=== PATIENT | female | born 1995 | race Caucasian/White ===

== ENCOUNTER 2021-11-26 07:35 | Inpatient (IN) ==
[2021-11-26] MEDS ORDERED: DEXTROSE 50% 50 ML SYRINGE IV PRN (08:49)
[2021-11-26] MEDS ORDERED: DEXTROSE 5% 1,000 ML IV PRN (08:49)
[2021-11-26] MEDS ORDERED: SODIUM CHLORIDE 0.9% 1000ML 1,000 ML IV PRN (08:49)
[2021-11-26] MEDS ORDERED: INSULIN REGULAR 250 UNITS in SODIUM CHLORIDE 0.9% 247.5 ML IV PRN (08:49)
[2021-11-26] MEDS ORDERED: OXYTOCIN 30 UNITS/500 ML BAG IV PRN ×2 (08:49)
--- NOTE | 2021-11-26 08:55 | History & Physical Report ---
Date of Service November 26, 2021 Assessment & Plan (1) Encounter for supervision of normal intrauterine in primigravida, antepartum: Plan: Admit to L&D. EFM/toco. Labs. IV. Pitocin. OK for epidural when she desires. OK to eat while admission process is happening, then NPO. History of Present Illness Chief Complaint: rupture of membranes Primary Care Provider: NO PCP 26yo @ 36 4/, presented to L&D with large gush of clear fluid this morning at 6:30a. No vaginal bleeding. + movement. Not feeling ctx. uncomplicated. Allergies Allergy/AdvReac Type Severity Reaction Status Date / Time No Known Allergies Allergy Verified 11/22/21 09:28 Home Medications Medication Instructions Recorded Confirmed Type prenat.vits,yue,bcz-rksb-dkclt 1 tab PO DAILY 05/19/21 11/22/21 History sertraline 100 mg tablet (Zoloft) 100 mg PO DAILY 05/19/21 11/22/21 History vitamin B complex [B PO 05/19/21 11/22/21 History Complex-Vitamin B12] breast pump #1 ea 11/22/21 11/22/21 Rx Patient History Medical History (Updated 10/13/21 @ 16:13 by Jenna Grey MD, FACOG) Varicella vaccine Surgical History (Updated 05/19/21 @ 10:16 by Aure JEFFRIES RN) History of cholecystectomy Family History (Updated 05/19/21 @ 09:59 by Aure JEFFRIES, ROSA) Father Hypertension Denies family history of Ovarian cancer Diabetes Breast cancer Lung cancer Colorectal cancer Social History (Updated 05/19/21 @ 10:01 by Aure JEFFRIES RN) Smoking Status: Never smoker marital status: Single marital status details: Norm Redmond (33) [phone] Current Living Situation: Significant Other Current Living Situation Comment: Sig. Other and 1 dog current occupational status: employed current occupation: [employer] Review of Systems All systems reviewed & are unremarkable except as noted in HPI & below Physical Exam Physical Exam: FHT Cat 1 Singer rare SVE 1/50/-3, soft, mid EFW 6-7 Limited bedside US: Cephalic, anterior placenta, not much measurable fluid. + cardiac activity. + movement Sterile spec exam: neg ferning, neg nitrizine, +pooling, +valsalva. +Amnisure. Constitutional: WD/WN, vitals as above Respiratory: normal respiratory effort, lungs clear to auscultation no respiratory distress Cardiovascular: Rate/Rhythm: regular rate and regular rhythm Gastrointestinal (Abdomen): Inspection/Auscultation: abdomen normal to inspection Percussion/Palpation: abdomen soft; abdomen nontender Gravid. No s/s chorio or abruption. Skin: no rashes, warm and dry Psychiatric: A+Ox3, euthymic affect Results & Data ([facility]) Vital Signs (Past 12 Hours) Vital Signs Temp Resp 11/26/21 07:41 36.8 C 20 Coding Level of Care Code None Diagnoses Encounter for supervision of normal intrauterine in primigravida, antepartum Z34.00
[2021-11-26] MEDS ORDERED: BETAMETH SOD PHOS/ACETATE IA 6 MG/ML IM STA (08:56)
[2021-11-26 09:37] LABS: Hemoglobin 12.1 g/dL (12.0-16.0); Mean Corpuscular Hemoglobin 30.4 pg (25-34); Mean Corpuscular Hgb Conc 33.6 g/dL (32-36); Mean Corpuscular Volume 90.5 fL (80-100); Mean Platelet Volume 10.9 fL (7.4-10.4); Platelet Count 286 K/uL (130-400); RDW Coefficient of Variation 12.6 % (11.5-14.5); RDW Standard Deviation 41.4 fL (36.4-46.3); Red Blood Count 3.98 M/uL (4.2-5.4); White Blood Count 12.57 K/uL (4.8-10.8)
[2021-11-26] MEDS: SERTRALINE HCL 100 MG TABLET PO SCH (13:43)
[2021-11-26] MEDS: LACTATED RINGER'S 1,000 ML IV PRN ×2 (15:47→23:34)
--- NOTE | 2021-11-26 20:56 | Labor Progress Brief Note ---
Date of Service November 26, 2021 Subjective Comfortable. FHT cat 1 Reader Q 1-3 1-2/50/-3 per RN Continue pitocin. Assessment & Plan Admission and Anticipated Discharge Date Admission Date: November 26, 2021 Results & Data ([facility]) Vital Signs (Past 12 Hours) Vital Signs Temp Pulse Resp BP 11/26/21 18:55 36.9 C 75 20 112/73 11/26/21 18:01 75 104/54 L 11/26/21 15:16 37.1 C 72 18 124/82 11/26/21 12:09 37.2 C 80 20 119/80 Coding Level of Care Code None
[2021-11-26] MEDS ORDERED: ePHEDrine sulfate 50 MG/ML AMP ONE (23:38)
[2021-11-26] MEDS ORDERED: BUPIVACAINE 0.25% 30 ML VIAL ONE (23:39)
[2021-11-26] MEDS ORDERED: SODIUM CHLORIDE 0.9% INJ 10 ML VIAL ONE (23:39)
[2021-11-26] MEDS ORDERED: fentaNYL citrate 100 MCG/2 ML VIAL ONE (23:39)
[2021-11-26] MEDS ORDERED: fentaNYL 2MCG/ML ROPIVACAINE 1.25MG/ML 100 ML BAG EPI ONE (23:40)
[2021-11-26] MEDS ORDERED: ONDANSETRON INJ 2 MG/ML 2 ML VIAL IV PRN (23:45)
[2021-11-26] MEDS ORDERED: diphenhydrAMINE 50 MG/ML VIAL IV PRN (23:45)
[2021-11-26] MEDS ORDERED: NALOXONE HCL 1 MG in SODIUM CHLORIDE 0.9% 1000ML 1,000 ML IV PRN (23:45)
[2021-11-26] MEDS ORDERED: ePHEDrine sulfate 50 MG/ML AMP IV PRN (23:45)
[2021-11-26] MEDS ORDERED: fentaNYL 2MCG/ML ROPIVACAINE 1.25MG/ML 100 ML BAG EPI PRN (23:45)
[2021-11-26] MEDS ORDERED: NALBUPHINE HCL INJ 10 MG/ML AMP IV PRN (23:45)
[2021-11-26] MEDS ORDERED: NALOXONE HCL 0.4 MG/1 ML VIAL/CARP IV PRN (23:45)
--- NOTE | 2021-11-26 23:47 | Anesthesiology Consultation ---
Date of Service November 26, 2021 Assessment & Plan (1) Encounter for pre-operative examination: Chart Review Chart Review: Patient NOT seen in Pre Admission Testing and Acceptable Risk for Labor Epidural Consults Requested none History Height/Weight Height: 4 ft 11 in Weight: 63.049 kg Allergies Allergy/AdvReac Type Severity Reaction Status Date / Time No Known Allergies Allergy Verified 11/26/21 10:26 Medications Home Medications Medication Instructions Recorded Confirmed Last Taken prenat.vits,yue,rwg-upkm-cynhy 1 tab PO DAILY 05/19/21 11/26/21 Unknown sertraline 100 mg tablet (Zoloft) 100 mg PO DAILY 05/19/21 11/26/21 Unknown breast pump #1 ea 11/22/21 11/22/21 Unknown Active Medications Generic Name Dose Route Start Last Admin Trade Name Freq PRN Reason Stop Dose Admin Oxytocin 30 units in 500 mls @ 5 mls/hr 11/26/21 08:49 11/26/21 22:35 Pitocin IV 11/28/21 08:48 0.3 units/hr .Q24H PRN 5 mls/hr Labor Induction/Augmentation Titration Protocol 0.3 UNITS/HR Lactated Ringer's 1,000 mls @ 125 mls/hr 11/26/21 08:49 11/26/21 23:34 Lr IV 11/28/21 08:48 125 mls/hr .Q8H PRN Administration L&D Protocol Protocol Sertraline HCl 100 mg 11/26/21 11:30 11/26/21 13:43 Sertraline Hcl 100 Mg Tablet PO 12/26/21 11:29 100 mg DAILY SHEN Administration Past Medical History Medical History Varicella vaccine Exercise / Class Metabolic Activity II 4-5 Yardwork/Stairs/Walk up hill Past Family History Family History Father Hypertension Denies family history of Ovarian cancer Diabetes Breast cancer Lung cancer Colorectal cancer Past Surgical History Surgical History History of cholecystectomy Past Anesthesia History No Hx of Anesthesia Complications and No Family Hx of Anesthesia Complications History of PONV No Hx of PONV and No Hx of Motion Sickness Social History Smoking Status: Never smoker Hx Alcohol Use: No Hx Substance Use: No substance use type: does not use Physical Exam Vital Signs Last Vital Signs Temp 36.9 C 11/26/21 23:12 Pulse 89 11/27/21 00:12 Resp 18 11/26/21 23:12 BP 112/59 L 11/27/21 00:10 Pulse Ox 96 11/27/21 00:12 Testing Laboratory Results 11/26/21 09:04
--- NOTE | 2021-11-27 03:24 | Labor Progress Brief Note ---
Date of Service November 27, 2021 Subjective Comfortable with epidural. FHT Cat 1 [place] Q 2-3 SVE 5/100/-1 Pitocin 17 Continue labor. If still 24h after first celestone dose, will repeat. Ordered. Assessment & Plan Admission and Anticipated Discharge Date Admission Date: November 26, 2021 Results & Data ([facility]) Vital Signs (Past 12 Hours) Vital Signs Temp Pulse Resp BP Pulse Ox 11/27/21 03:21 90 130/64 11/27/21 03:17 80 88/54 L 98 11/27/21 03:12 83 98 11/27/21 03:07 85 98 11/27/21 03:03 76 96/53 L 11/27/21 03:02 77 98 11/27/21 02:57 88 99 11/27/21 02:52 83 100 11/27/21 02:47 83 92/50 L 100 11/27/21 02:42 84 100 11/27/21 02:37 84 100 11/27/21 02:32 82 103/52 L 100 11/27/21 02:27 80 100 11/27/21 02:22 72 100 11/27/21 02:17 76 128/67 99 11/27/21 02:12 84 100 11/27/21 02:07 81 100 11/27/21 02:04 75 101/59 L 11/27/21 02:02 82 98 11/27/21 01:57 78 100 11/27/21 01:52 85 100 11/27/21 01:47 71 99/59 L 100 11/27/21 01:42 107 H 100 11/27/21 01:37 104 H 100 11/27/21 01:32 90 118/65 100 11/27/21 01:31 36.7 C 18 11/27/21 01:29 85 94 11/27/21 01:27 94 H 97 11/27/21 01:22 83 100 11/27/21 01:17 83 105/53 L 100 11/27/21 01:12 86 100 11/27/21 01:07 97 H 100 11/27/21 01:02 93 H 113/56 L 100 11/27/21 00:57 97 H 96 11/27/21 00:52 95 H 100 11/27/21 00:47 99 H 100 11/27/21 00:46 94 H 109/57 L 11/27/21 00:42 94 H 100 11/27/21 00:37 90 100 11/27/21 00:32 90 100 11/27/21 00:31 96 H 104/57 L 11/27/21 00:30 36.9 C 18 11/27/21 00:27 36.8 C 101 H 18 106/53 L 100 11/27/21 00:25 98 H 92 11/27/21 00:22 99 H 98/51 L 100 11/27/21 00:17 101 H 113/47 L 100 11/27/21 00:16 88 93/49 L 11/27/21 00:12 89 96 11/27/21 00:11 87 94 11/27/21 00:10 83 112/59 L 11/27/21 00:07 82 100 11/27/21 00:02 75 100 11/26/21 23:57 93 H 93 11/26/21 23:12 36.9 C 70 18 124/77 11/26/21 22:02 86 114/72 11/26/21 21:01 36.8 C 90 18 110/64 11/26/21 18:55 36.9 C 75 20 112/73 11/26/21 18:01 75 104/54 L Coding Level of Care Code None
[2021-11-27] MEDS: LACTATED RINGER'S 1,000 ML IV PRN ×2 (04:04→08:21)
[2021-11-27] MEDS ORDERED: NURSING L&D Epidural Breakthrough Pain Update ONE (06:04)
--- NOTE | 2021-11-27 06:49 | Labor Progress Brief Note ---
Date of Service November 27, 2021 Subjective Patient had begun to push with RN, but developed variable and then late decels. Pitocin was stopped, oxygen was applied. FHT have recovered at this point. Now cat 1. My cervix exam was 8-9/100/0, thick anterior lip of cervix. Will restart pitocin, continue labor. Assessment & Plan Admission and Anticipated Discharge Date Admission Date: November 26, 2021 Results & Data ([facility]) Vital Signs (Past 12 Hours) Vital Signs Temp Pulse Resp BP Pulse Ox 11/27/21 06:46 93 H 105/59 L 85 L 11/27/21 06:42 85 100 11/27/21 06:41 90 94 11/27/21 06:37 85 100 11/27/21 06:32 84 97/56 L 100 11/27/21 06:28 89 91 11/27/21 06:27 90 100 11/27/21 06:22 87 100 11/27/21 06:20 84 91 11/27/21 06:17 92 H 100 11/27/21 06:16 90 108/58 L 11/27/21 06:12 92 H 100 11/27/21 06:07 89 100 11/27/21 06:03 83 110/59 L 11/27/21 06:02 82 100 11/27/21 05:57 90 100 11/27/21 05:52 92 H 100 11/27/21 05:50 106 H 89 L 11/27/21 05:48 99 H 139/72 11/27/21 05:47 100 H 100 11/27/21 05:45 100 H 93 11/27/21 05:42 94 H 100 11/27/21 05:37 99 H 100 11/27/21 05:33 96 H 121/69 11/27/21 05:32 95 H 100 11/27/21 05:27 95 H 100 11/27/21 05:22 98 H 100 11/27/21 05:18 97 H 128/71 11/27/21 05:17 93 H 100 11/27/21 05:12 93 H 100 11/27/21 05:10 36.6 C 100 H 18 93 11/27/21 05:07 96 H 100 11/27/21 05:05 99 H 90 11/27/21 05:03 94 H 129/74 11/27/21 05:02 94 H 100 11/27/21 04:57 93 H 100 11/27/21 04:52 92 H 100 11/27/21 04:48 92 H 125/79 11/27/21 04:47 94 H 100 11/27/21 04:42 94 H 100 11/27/21 04:37 80 100 11/27/21 04:33 83 122/70 11/27/21 04:32 81 100 11/27/21 04:27 84 100 11/27/21 04:22 77 100 11/27/21 04:18 36.5 C 80 18 123/71 11/27/21 04:17 81 100 11/27/21 04:12 83 100 11/27/21 04:07 85 100 11/27/21 04:02 81 124/71 100 11/27/21 03:57 77 100 11/27/21 03:52 101 H 99 11/27/21 03:47 97 H 120/72 100 11/27/21 03:42 91 H 100 11/27/21 03:37 89 100 11/27/21 03:34 100 H 92 11/27/21 03:32 81 122/58 L 100 11/27/21 03:29 80 92 11/27/21 03:27 110 H 100 11/27/21 03:23 104 H 92 11/27/21 03:22 89 100 11/27/21 03:21 90 130/64 11/27/21 03:17 80 88/54 L 98 11/27/21 03:12 83 98 11/27/21 03:07 85 98 11/27/21 03:03 76 96/53 L 11/27/21 03:02 77 98 11/27/21 02:57 88 99 11/27/21 02:52 83 100 11/27/21 02:47 83 92/50 L 100 11/27/21 02:42 84 100 11/27/21 02:37 84 100 11/27/21 02:32 82 103/52 L 100 11/27/21 02:27 80 100 11/27/21 02:22 72 100 11/27/21 02:17 76 128/67 99 11/27/21 02:12 84 100 11/27/21 02:07 81 100 11/27/21 02:04 75 101/59 L 07/02/22 02:02 82 98 11/27/21 01:57 78 100 11/27/21 01:52 85 100 11/27/21 01:47 71 99/59 L 100 11/27/21 01:42 107 H 100 11/27/21 01:37 104 H 100 11/27/21 01:32 90 118/65 100 11/27/21 01:31 36.7 C 18 11/27/21 01:29 85 94 11/27/21 01:27 94 H 97 11/27/21 01:22 83 100 11/27/21 01:17 83 105/53 L 100 11/27/21 01:12 86 100 11/27/21 01:07 97 H 100 11/27/21 01:02 93 H 113/56 L 100 11/27/21 00:57 97 H 96 11/27/21 00:52 95 H 100 11/27/21 00:47 99 H 100 11/27/21 00:46 94 H 109/57 L 11/27/21 00:42 94 H 100 11/27/21 00:37 90 100 11/27/21 00:32 90 100 11/27/21 00:31 96 H 104/57 L 11/27/21 00:30 36.9 C 18 11/27/21 00:27 36.8 C 101 H 18 106/53 L 100 11/27/21 00:25 98 H 92 11/27/21 00:22 99 H 98/51 L 100 11/27/21 00:17 101 H 113/47 L 100 11/27/21 00:16 88 93/49 L 11/27/21 00:12 89 96 11/27/21 00:11 87 94 11/27/21 00:10 83 112/59 L 11/27/21 00:07 82 100 11/27/21 00:02 75 100 11/26/21 23:57 93 H 93 11/26/21 23:12 36.9 C 70 18 124/77 11/26/21 22:02 86 114/72 11/26/21 21:01 36.8 C 90 18 110/64 11/26/21 18:55 36.9 C 75 20 112/73 Coding Level of Care Code None
--- NOTE | 2021-11-27 08:16 | Labor Progress Brief Note ---
Date of Service November 27, 2021 Subjective Comfortable with epidural. FHT 120s, mod saul. +variable decels [place] Q 2-4 SVE 9/100/0 Assessment & Plan Admission and Anticipated Discharge Date Admission Date: November 26, 2021 Results & Data ([facility]) Vital Signs (Past 12 Hours) Vital Signs Temp Pulse Resp BP Pulse Ox 11/27/21 08:12 83 100 11/27/21 08:09 101 H 91 11/27/21 08:07 94 H 100 11/27/21 08:02 79 116/65 100 11/27/21 07:57 93 H 100 11/27/21 07:56 85 94 11/27/21 07:52 84 100 11/27/21 07:47 86 97/55 L 99 11/27/21 07:42 87 97 11/27/21 07:37 91 H 100 11/27/21 07:32 83 105/59 L 100 11/27/21 07:27 90 100 11/27/21 07:22 96 H 100 11/27/21 07:17 85 117/55 L 100 11/27/21 07:12 86 100 11/27/21 07:07 88 100 11/27/21 07:02 80 115/56 L 100 11/27/21 06:57 84 100 11/27/21 06:54 80 91 11/27/21 06:52 82 100 11/27/21 06:48 36.7 C 16 11/27/21 06:47 102 H 100 11/27/21 06:46 93 H 105/59 L 85 L 11/27/21 06:42 85 100 11/27/21 06:41 90 94 11/27/21 06:37 85 100 11/27/21 06:32 84 97/56 L 100 11/27/21 06:28 89 91 11/27/21 06:27 90 100 11/27/21 06:22 87 100 11/27/21 06:20 84 91 11/27/21 06:17 92 H 100 11/27/21 06:16 90 108/58 L 11/27/21 06:12 92 H 100 11/27/21 06:07 89 100 11/27/21 06:03 83 110/59 L 11/27/21 06:02 82 100 11/27/21 05:57 90 100 11/27/21 05:52 92 H 100 11/27/21 05:50 106 H 89 L 11/27/21 05:48 99 H 139/72 11/27/21 05:47 100 H 100 11/27/21 05:45 100 H 93 11/27/21 05:42 94 H 100 11/27/21 05:37 99 H 100 11/27/21 05:33 96 H 121/69 11/27/21 05:32 95 H 100 11/27/21 05:27 95 H 100 11/27/21 05:22 98 H 100 11/27/21 05:18 97 H 128/71 11/27/21 05:17 93 H 100 11/27/21 05:12 93 H 100 11/27/21 05:10 36.6 C 100 H 18 93 11/27/21 05:07 96 H 100 11/27/21 05:05 99 H 90 11/27/21 05:03 94 H 129/74 11/27/21 05:02 94 H 100 11/27/21 04:57 93 H 100 11/27/21 04:52 92 H 100 11/27/21 04:48 92 H 125/79 11/27/21 04:47 94 H 100 11/27/21 04:42 94 H 100 11/27/21 04:37 80 100 11/27/21 04:33 83 122/70 11/27/21 04:32 81 100 11/27/21 04:27 84 100 11/27/21 04:22 77 100 11/27/21 04:18 36.5 C 80 18 123/71 11/27/21 04:17 81 100 11/27/21 04:12 83 100 11/27/21 04:07 85 100 11/27/21 04:02 81 124/71 100 11/27/21 03:57 77 100 11/27/21 03:52 101 H 99 11/27/21 03:47 97 H 120/72 100 11/27/21 03:42 91 H 100 11/27/21 03:37 89 100 11/27/21 03:34 100 H 92 11/27/21 03:32 81 122/58 L 100 11/27/21 03:29 80 92 11/27/21 03:27 110 H 100 11/27/21 03:23 104 H 92 07/02/22 03:22 89 100 11/27/21 03:21 90 130/64 11/27/21 03:17 80 88/54 L 98 11/27/21 03:12 83 98 11/27/21 03:07 85 98 11/27/21 03:03 76 96/53 L 11/27/21 03:02 77 98 11/27/21 02:57 88 99 11/27/21 02:52 83 100 11/27/21 02:47 83 92/50 L 100 11/27/21 02:42 84 100 11/27/21 02:37 84 100 11/27/21 02:32 82 103/52 L 100 11/27/21 02:27 80 100 11/27/21 02:22 72 100 11/27/21 02:17 76 128/67 99 11/27/21 02:12 84 100 11/27/21 02:07 81 100 11/27/21 02:04 75 101/59 L 11/27/21 02:02 82 98 11/27/21 01:57 78 100 11/27/21 01:52 85 100 11/27/21 01:47 71 99/59 L 100 11/27/21 01:42 107 H 100 11/27/21 01:37 104 H 100 11/27/21 01:32 90 118/65 100 11/27/21 01:31 36.7 C 11/27/21 01:29 85 94 11/27/21 01:27 94 H 97 11/27/21 01:22 83 100 11/27/21 01:17 83 105/53 L 100 11/27/21 01:12 86 100 11/27/21 01:07 97 H 100 11/27/21 01:02 93 H 113/56 L 100 11/27/21 00:57 97 H 96 11/27/21 00:52 95 H 100 11/27/21 00:47 99 H 100 11/27/21 00:46 94 H 109/57 L 11/27/21 00:42 94 H 100 11/27/21 00:37 90 100 11/27/21 00:32 90 100 11/27/21 00:31 96 H 104/57 L 11/27/21 00:30 36.9 C 18 11/27/21 00:27 36.8 C 101 H 18 106/53 L 100 11/27/21 00:25 98 H 92 11/27/21 00:22 99 H 98/51 L 100 11/27/21 00:17 101 H 113/47 L 100 11/27/21 00:16 88 93/49 L 11/27/21 00:12 89 96 11/27/21 00:11 87 94 11/27/21 00:10 83 112/59 L 11/27/21 00:07 82 100 11/27/21 00:02 75 100 11/26/21 23:57 93 H 93 11/26/21 23:12 36.9 C 70 18 124/77 11/26/21 22:02 86 114/72 11/26/21 21:01 36.8 C 90 18 110/64 Coding Level of Care Code None
[2021-11-27] MEDS ORDERED: BETAMETH SOD PHOS/ACETATE IA 6 MG/ML IM ONE (10:45)
[2021-11-27] MEDS ORDERED: ROPIVACAINE 0.5% 5 MG/ML 30 ML VIAL ONE (12:00)
[2021-11-27] MEDS ORDERED: LIDOCAINE 2%/EPINEPHRINE 1:200,000 20 ML SDV ONE (12:00)
--- NOTE | 2021-11-27 12:22 | History & Physical Report ---
Date of Service November 27, 2021 Assessment & Plan (1) Encounter for supervision of normal intrauterine in primigravida, antepartum: Plan: section. The patient was counseled to the nature of the procedure including alternatives such as labor. Risks were discussed including bleeding infection injury to bowel bladder ureter vessels and even baby. Deep Vein thrombosis, pulmonary embolus discussed. Breakdown of incision reviewed. Deep vein thrombosis pulmonary embolus hernia and failure of the incision to heal were discussed Patient verbalized understanding of this and was given ample time to ask questions In this situation she has been 9 cm for almost 8 hours despite adequate contractions she is also attempted to push and there was some descent however she still has cervix all around after this 1 push she had a significant prolonged D-cell at this stage we reviewed with the patient the option available 1 would be to stop the Pitocin which we have for 30 minutes and then retry again the other would be to proceed with section as she has some anterior cervix swelling has not made progress in 7 and half hours and is having D cells when she pushes patient wishes to pursue and I think this is reasonable risks of increased infection discussed Admission and Anticipated Discharge Date Admission Date: November 26, 2021 History of Present Illness Primary Care Provider: NO PCP Allergies Allergy/AdvReac Type Severity Reaction Status Date / Time No Known Allergies Allergy Verified 11/26/21 10:26 Home Medications Medication Instructions Recorded Confirmed Type prenat.vits,yue,ybl-uwtv-qvxyu 1 tab PO DAILY 05/19/21 11/26/21 History sertraline 100 mg tablet (Zoloft) 100 mg PO DAILY 05/19/21 11/26/21 History breast pump #1 ea 11/22/21 11/22/21 Rx Patient History Medical History Varicella vaccine Surgical History History of cholecystectomy Family History Father Hypertension Denies family history of Ovarian cancer Diabetes Breast cancer Lung cancer Colorectal cancer Social History (Updated 05/19/21 @ 10:01 by Aure JEFFRIES RN) Smoking Status: Never smoker Hx Alcohol Use: No Hx Substance Use: No Beliefs That Will Affect Care: None marital status: Single marital status details: Norm Redmond (33) [phone] Current Living Situation: Significant Other Current Living Situation Comment: Sig. Other and 1 dog current occupational status: employed current occupation: [employer] Other Information That Helps Us Care for You: No Feels Safe at Home: Yes Safety Concerns: Feels Safe At This Time Assistive Devices: None Results & Data ([facility]) Vital Signs (Past 12 Hours) Vital Signs Temp Pulse Resp BP Pulse Ox 11/27/21 12:17 101 H 125/58 L 100 11/27/21 12:12 87 100 11/27/21 12:08 87 91 11/27/21 12:07 84 97 11/27/21 12:02 78 115/66 100 11/27/21 11:59 89 94 11/27/21 11:57 89 100 11/27/21 11:53 89 90 11/27/21 11:52 81 100 11/27/21 11:48 84 20 119/65 11/27/21 11:47 83 98 11/27/21 11:42 96 H 100 11/27/21 11:38 88 94 11/27/21 11:37 86 100 11/27/21 11:33 96 H 128/72 11/27/21 11:32 100 H 100 11/27/21 11:27 97 H 100 11/27/21 11:22 96 H 100 11/27/21 11:17 98 H 100 11/27/21 11:16 95 H 120/67 11/27/21 11:12 96 H 99 11/27/21 11:09 96 H 90 11/27/21 11:07 98 H 100 11/27/21 11:05 97.7 F 20 11/27/21 11:02 96 H 100 11/27/21 11:01 97.7 F 90 20 117/63 11/27/21 10:57 97 H 100 11/27/21 10:53 102 H 90 11/27/21 10:52 93 H 100 11/27/21 10:47 90 126/70 100 11/27/21 10:46 101 H 93 11/27/21 10:42 99 H 99 11/27/21 10:39 98.1 F 18 11/27/21 10:37 92 H 100 11/27/21 10:32 88 113/63 100 11/27/21 10:27 89 100 11/27/21 10:22 92 H 100 11/27/21 10:17 91 H 108/63 100 11/27/21 10:12 92 H 100 11/27/21 10:07 95 H 88 L 11/27/21 10:02 96 H 122/73 99 11/27/21 09:57 106 H 100 11/27/21 09:52 90 100 11/27/21 09:47 90 107/64 100 11/27/21 09:42 93 H 100 11/27/21 09:37 99 H 100 11/27/21 09:33 100 H 125/64 11/27/21 09:32 107 H 16 92 11/27/21 09:27 95 H 100 11/27/21 09:22 94 H 100 11/27/21 09:17 89 106/57 L 100 11/27/21 09:12 88 100 11/27/21 09:07 88 100 11/27/21 09:02 90 100 11/27/21 08:57 87 94 11/27/21 08:52 87 100 11/27/21 08:47 86 100 11/27/21 08:42 92 H 100 11/27/21 08:37 98 H 100 11/27/21 08:32 87 115/74 100 11/27/21 08:30 98.1 F 18 11/27/21 08:27 84 100 11/27/21 08:25 98.1 F 18 11/27/21 08:22 88 100 11/27/21 08:17 81 117/75 100 11/27/21 08:12 83 100 11/27/21 08:09 101 H 91 11/27/21 08:07 94 H 100 11/27/21 08:02 79 116/65 100 11/27/21 07:57 93 H 100 11/27/21 07:56 85 94 11/27/21 07:52 84 100 11/27/21 07:47 86 97/55 L 99 11/27/21 07:42 87 97 11/27/21 07:37 91 H 100 11/27/21 07:32 83 105/59 L 100 11/27/21 07:27 90 100 11/27/21 07:22 96 H 100 11/27/21 07:17 85 117/55 L 100 11/27/21 07:12 86 100 11/27/21 07:07 88 100 11/27/21 07:02 80 115/56 L 100 11/27/21 06:57 84 100 11/27/21 06:54 80 91 11/27/21 06:52 82 100 11/27/21 06:48 98.1 F 16 11/27/21 06:47 102 H 100 11/27/21 06:46 93 H 105/59 L 85 L 11/27/21 06:42 85 100 11/27/21 06:41 90 94 11/27/21 06:37 85 100 11/27/21 06:32 84 97/56 L 100 11/27/21 06:28 89 91 11/27/21 06:27 90 100 11/27/21 06:22 87 100 11/27/21 06:20 84 91 11/27/21 06:17 92 H 100 11/27/21 06:16 90 108/58 L 11/27/21 06:12 92 H 100 11/27/21 06:07 89 100 11/27/21 06:03 83 110/59 L 11/27/21 06:02 82 100 11/27/21 05:57 90 100 11/27/21 05:52 92 H 100 11/27/21 05:50 106 H 89 L 11/27/21 05:48 99 H 139/72 11/27/21 05:47 100 H 100 11/27/21 05:45 100 H 93 11/27/21 05:42 94 H 100 11/27/21 05:37 99 H 100 11/27/21 05:33 96 H 121/69 11/27/21 05:32 95 H 100 11/27/21 05:27 95 H 100 11/27/21 05:22 98 H 100 11/27/21 05:18 97 H 128/71 11/27/21 05:17 93 H 100 11/27/21 05:12 93 H 100 11/27/21 05:10 97.9 F 100 H 18 93 11/27/21 05:07 96 H 100 11/27/21 05:05 99 H 90 11/27/21 05:03 94 H 129/74 11/27/21 05:02 94 H 100 11/27/21 04:57 93 H 100 11/27/21 04:52 92 H 100 11/27/21 04:48 92 H 125/79 11/27/21 04:47 94 H 100 11/27/21 04:42 94 H 100 11/27/21 04:37 80 100 11/27/21 04:33 83 122/70 11/27/21 04:32 81 100 11/27/21 04:27 84 100 11/27/21 04:22 77 100 11/27/21 04:18 97.7 F 80 18 123/71 11/27/21 04:17 81 100 11/27/21 04:12 83 100 11/27/21 04:07 85 100 11/27/21 04:02 81 124/71 100 11/27/21 03:57 77 100 11/27/21 03:52 101 H 99 11/27/21 03:47 97 H 120/72 100 11/27/21 03:42 91 H 100 11/27/21 03:37 89 100 11/27/21 03:34 100 H 92 11/27/21 03:32 81 122/58 L 100 11/27/21 03:29 80 92 11/27/21 03:27 110 H 100 11/27/21 03:23 104 H 92 11/27/21 03:22 89 100 11/27/21 03:21 90 130/64 11/27/21 03:17 80 88/54 L 98 11/27/21 03:12 83 98 11/27/21 03:07 85 98 11/27/21 03:03 76 96/53 L 11/27/21 03:02 77 98 11/27/21 02:57 88 99 11/27/21 02:52 83 100 11/27/21 02:47 83 92/50 L 100 11/27/21 02:42 84 100 11/27/21 02:37 84 100 11/27/21 02:32 82 103/52 L 100 11/27/21 02:27 80 100 11/27/21 02:22 72 100 11/27/21 02:17 76 128/67 99 11/27/21 02:12 84 100 11/27/21 02:07 81 100 11/27/21 02:04 75 101/59 L 11/27/21 02:02 82 98 11/27/21 01:57 78 100 11/27/21 01:52 85 100 11/27/21 01:47 71 99/59 L 100 11/27/21 01:42 107 H 100 11/27/21 01:37 104 H 100 11/27/21 01:32 90 118/65 100 11/27/21 01:31 98.1 F 18 11/27/21 01:29 85 94 11/27/21 01:27 94 H 97 11/27/21 01:22 83 100 11/27/21 01:17 83 105/53 L 100 11/27/21 01:12 86 100 11/27/21 01:07 97 H 100 11/27/21 01:02 93 H 113/56 L 100 11/27/21 00:57 97 H 96 11/27/21 00:52 95 H 100 11/27/21 00:47 99 H 100 11/27/21 00:46 94 H 109/57 L 11/27/21 00:42 94 H 100 11/27/21 00:37 90 100 11/27/21 00:32 90 100 11/27/21 00:31 96 H 104/57 L 11/27/21 00:30 98.4 F 18 11/27/21 00:27 98.2 F 101 H 18 106/53 L 100 11/27/21 00:25 98 H 92 11/27/21 00:22 99 H 98/51 L 100 Coding Level of Care Code None Diagnoses Encounter for supervision of normal intrauterine in primigravida, antepartum Z34.00
[2021-11-27] MEDS ORDERED: CITRIC ACID/SODIUM CITRATE 15 ML UDC ONE (12:26)
[2021-11-27] MEDS ORDERED: LACTATED RINGER'S 1,000 ML IV SCH ×2 (12:30→15:00)
[2021-11-27] MEDS ORDERED: ceFAZolin 2000MG 2,000 MG/15 ML SYR IV SCH (12:30)
[2021-11-27] MEDS ORDERED: MoRPHine SULFATE PF 1 MG/ML 10 ML AMP/VIAL ONE (12:46)
[2021-11-27] MEDS ORDERED: PROPOFOL IV EMULSION 10 MG/ML 20 ML VIAL IV ONE (12:54)
[2021-11-27] MEDS ORDERED: METOCLOPRAMIDE HCL INJ 5 MG/ML 2 ML VIAL ONE (12:54)
[2021-11-27] MEDS ORDERED: SUCCINYLCHOLINE CHLORIDE 20 MG/ML 10 ML VIAL IV ONE (12:54)
[2021-11-27] MEDS ORDERED: ONDANSETRON INJ 2 MG/ML 2 ML VIAL ONE (12:54)
[2021-11-27] MEDS ORDERED: OXYTOCIN 10 UNITS/ML 10ML VIAL ONE (12:54)
--- NOTE | 2021-11-27 13:27 | Operative Report ---
PG Post Operative Report Pre & Post Diagnosis Operation Date: 11/27/21 12:30 Pre-Op Diagnosis: Primary Section for Failure to Progress and Intolerance to Labor. Post-Op Diagnosis: Primary Section for Failure to Progress and Intolerance to Labor. I identified the patient and participated in the time-out.: Yes Procedure Operation Date: 11/27/21 12:30 Actual Procedures p Section in LD: Live Male Infant at 1255(Bilateral) - Amilcar Lopez MD, FACOG Surgeon Amilcar Lopez MD, FACOG Fur Weigher . Estimated Blood Loss 600 Findings Consistent with Post-Op Diagnosis Specimens cord blood, gases Description of Procedure Regional anesthetic had been given by anesthesia patient was prepped and draped with a leftward tilt preoperative antibiotics had been given in appropriate timing by anesthesiology. Once the prep was allowed to fully dry timeout was performed. Pickups with teeth were used to test the incision area was found to be adequate for incision as the patient did not feel sharp pain. Scalpel was used to make a Pfannenstiel incision on the lower abdomen. We then cut through the subcutaneous fat down to the level of the anterior rectus sheath fascia this was cut in the midline and then extended laterally with the curved Avery scissors. At this stage we then placed 2 Victoriano clamps on the anterior aspect of the fascia. Using the curved Avery's we are able to dissect the fascia superiorly away from the rectus muscles. Care was taken to maintain hemostasis. Victoriano clamps were then placed to the inferior aspect of the anterior sheath of the fascia. Fascia was then dissected away from the rectus muscles inferiorly towards the pubic bone. A Victoriano was then placed in the midline both inferiorly and superiorly. This was to allow exposure by retraction rectus muscles were in the midline with were then able to cut through the peritoneum and then enter the peritoneal cavity. Opening was enlarged to allow exposure of the peritoneal cavity both superiorly and inferiorly. Once adequate space was obtained a bladder retractor was placed to expose the lower segment Metzenbaums were used to dissect the bladder flap inferiorly away from the uterus. This was done sharply bladder retractor was then repositioned to expose the lower segment of the uterus Fresh scalpel was used to make a low transverse incision on the uterus. Uterus was then entered bluntly with the operators finger, membranes ruptured and the opening was enlarged using the operators fingers bluntly pulling superiorly and inferiorly to allow exposure. Baby was delivered by first flexion of the head elevation of the head out of the pelvis and then pressure by the assistant elementary teacher on the maternal abdomen. Baby's head was then delivered mouth and then nares were suctioned and then using gentle traction the baby was fully delivered. Live vigorous infant. Fluid was clear cord clamped and cut cord gases obtained cord blood obtained baby handed to pediatrics. Placenta removed was removed with traction we ensure the entire placenta was removed with a moist lap sponge into the uterus note there were 2 findings 1 the baby was in direct occiput posterior position and secondly there was a cord by the side of the head not a nuchal cord Uterus was then exteriorized. IV Pitocin had been started by anesthesia tone improved there were no extensions the uterus was then closed using 0 Monocryl in a 2 layer closure the first layer closed in a running locked fashion from left to right and then a second closure from left to right in a running nonlocked fashion. At this stage hemostasis was excellent. Uterus was placed back in the peritoneal cavity with suction irrigation out and inspection of the uterus at this stage revealed excellent hemostasis Retractors were removed urine color was clear at this stage of the case we inspected the rectus muscles they were hemostatic fascia was closed with 0 Vicryl subcutaneous fat was irrigated and closed with 3-0 Vicryl skin closed with 4-0 subcuticular Monocryl I attest to the content of the Intraoperative Record and any orders documented therein. Any exceptions are noted below. OB Procedure Charges 24903
[2021-11-27 13:51] LABS: Base Excess Cord Arterial Bld -3.3 mEq/L (-9-1.8); CO2 Cord Arterial Blood 50 mmHg (39.1-73.5); HCO3 Cord Arterial Blood 24 mmol/L (19.7-28.5); Oxygen Sat Cord Arterial Blood < 60.0 % (<60); PO2 Cord Arterial Blood 20 mmHg (4.1-31.7); pH Cord Arterial Blood 7.29 (7.1-7.38)
--- NOTE | 2021-11-27 13:51 | Anesthesia Procedure Note ---
Date of Service November 27, 2021 Anesthesia Post Epidural Note Vital Signs Vital Signs: Temp Pulse Resp BP Pulse Ox 36.5 C 90 20 115/57 L 99 11/27/21 11:05 11/27/21 13:49 11/27/21 11:48 11/27/21 13:49 11/27/21 13:48 Pain Intensity Lower Abdomen: Pain Intensity: 5 Notes Mental Status: alert / awake / arousable and participated in evaluation Patient Amnestic to Procedure: No Nausea / Vomiting: adequately controlled Pain: adequately controlled Airway Patency, RR, SpO2: stable & adequate BP & HR: stable & adequate Hydration State: stable & adequate Anesthetic Complications: no major complications apparent and Pt Satisfied with anesthetic care Epidural: Removed without complications and With tip intact
[2021-11-27 13:54] LABS: Base Excess Cord Venous Blood -3.8 mEq/L (-7.7-1.9); Cord Venous Blood HCO3 22 mmol/L (18.4-26.8); Cord Venous Blood PCO2 42 mmHg (30.4-57.2); Cord Venous Blood PO2 34 mmHg (14.1-43.3); Cord Venous Blood pH 7.33 (7.20-7.44); O2 Saturation Cord Venous Bld 68.9 % (<68)
[2021-11-27] MEDS ORDERED: MoRPHine SULFATE 2 MG/ML CARP IV PRN (14:32)
[2021-11-27] MEDS ORDERED: MoRPHine SULFATE PF 1 MG/ML 10 ML AMP/VIAL EPI ONE (14:32)
[2021-11-27] MEDS ORDERED: PROMETHAZINE HCL 12.5 MG in SODIUM CHLORIDE 0.9% 50 ML IV PRN (14:32)
[2021-11-27] MEDS ORDERED: NALBUPHINE HCL INJ 10 MG/ML AMP IV PRN (14:32)
[2021-11-27] MEDS ORDERED: ePHEDrine sulfate 50 MG/ML AMP IV PRN (14:32)
[2021-11-27] MEDS ORDERED: LACTATED RINGER'S 500 ML IV PRN (14:32)
[2021-11-27] MEDS ORDERED: diphenhydrAMINE 50 MG/ML VIAL IV PRN (14:32)
[2021-11-27] MEDS ORDERED: MoRPHine SULFATE PF 1 MG/ML 10 ML AMP/VIAL INT SPINAL ONE (14:32)
[2021-11-27] MEDS ORDERED: NALOXONE HCL 0.08 MG in SYRINGE 1.8 ML IV PRN (14:32)
[2021-11-27] MEDS ORDERED: NALOXONE HCL 1 MG in SODIUM CHLORIDE 0.9% 1000ML 1,000 ML IV PRN (14:32)
[2021-11-27] MEDS ORDERED: ONDANSETRON INJ 2 MG/ML 2 ML VIAL IV PRN ×2 (14:32→14:56)
[2021-11-27] MEDS ORDERED: NALOXONE HCL 0.4 MG/1 ML VIAL/CARP IV PRN (14:32)
[2021-11-27] MEDS ORDERED: SODIUM CHLORIDE 0.9% 1000ML 1,000 ML IV SCH (14:45)
[2021-11-27] MEDS ORDERED: DC INTRASPINAL MORPHINE SCH (14:45)
[2021-11-27] MEDS ORDERED: NO NARCOTICS OR SEDATIVES SCH (14:45)
[2021-11-27] MEDS ORDERED: BENZOCAINE 20% AER SPR 82.5 GM CAN EXT PRN (14:56)
[2021-11-27] MEDS ORDERED: DIPHTHERIA/TETANUS/PERTUSSIS 0.5 ML SYR/VIAL IM ONE (14:56)
[2021-11-27] MEDS ORDERED: MAGNESIUM HYDROXIDE SUSP 30 ML UDC PO PRN (14:56)
[2021-11-27] MEDS ORDERED: HYDROCORTISONE ACETATE 25 MG SUPP PR PRN (14:56)
[2021-11-27] MEDS ORDERED: SENNA 8.6 MG TAB PO PRN (14:56)
[2021-11-27] MEDS: KETOROLAC 30 MG/ML VIAL IV PRN (15:10)
[2021-11-27] MEDS: SERTRALINE HCL 100 MG TABLET PO SCH (15:11)
[2021-11-27] MEDS ORDERED: CALCIUM CARBONATE 500 MG CHEWABLE TAB PO PRN (16:17)
[2021-11-27] MEDS: SIMETHICONE 80 MG CHEW PO SCH ×2 (17:32→20:56)
[2021-11-27] MEDS: OXYTOCIN 20 UNITS in LACTATED RINGER'S 1,000 ML IV SCH (17:32)
[2021-11-27] MEDS: DOCUSATE SODIUM 100 MG CAP PO SCH (20:56)
[2021-11-28] MEDS: OXYTOCIN 20 UNITS in LACTATED RINGER'S 1,000 ML IV SCH (01:47)
[2021-11-28] MEDS: KETOROLAC 30 MG/ML VIAL IV PRN (06:01)
[2021-11-28 07:08] LABS: Hematocrit (blood only) 28.6 % (37-47); Hemoglobin 9.9 g/dL (12.0-16.0); Mean Corpuscular Hemoglobin 31.1 pg (25-34); Mean Corpuscular Hgb Conc 34.6 g/dL (32-36); Mean Corpuscular Volume 89.9 fL (80-100); Mean Platelet Volume 10.8 fL (7.4-10.4); Platelet Count 229 K/uL (130-400); RDW Coefficient of Variation 12.7 % (11.5-14.5); RDW Standard Deviation 41.4 fL (36.4-46.3); Red Blood Count 3.18 M/uL (4.2-5.4); White Blood Count 20.59 K/uL (4.8-10.8)
[2021-11-28 07:39] LABS: ALC (manual) 1.26 K/uL (1.2-3.4); ANC (manual) 18.98 K/uL (1.4-6.5); Lymphocytes # (manual) 1.26 K/uL (1.2-3.4); Lymphocytes % (manual) 6.1 %; Monocytes # (manual) 0.35 K/uL (0.11-0.59); Monocytes % (manual) 1.7 %; Neutrophils # (manual) 18.98 K/uL (1.4-6.5); Neutrophils % (manual) 92.2 %; RBC Morphology Unremarkable
[2021-11-28] MEDS ORDERED: diphenhydrAMINE 50 MG/ML VIAL IV PRN (08:32)
[2021-11-28] MEDS ORDERED: KETOROLAC 30 MG/ML VIAL IV PRN (08:32)
[2021-11-28] MEDS ORDERED: diphenhydrAMINE Capsule 25 MG CAP PO PRN (08:33)
[2021-11-28] MEDS ORDERED: PROMETHAZINE HCL 25 MG in SODIUM CHLORIDE 0.9% 50 ML IV PRN (08:33)
--- NOTE | 2021-11-28 08:39 | Obstetrical Progress Note ---
Date of Service November 28, 2021 Assessment & Plan (1) Encounter for supervision of normal intrauterine in primigravida, antepartum: post op day 1, cont current care Subjective Ambulation: ambulating normally Voiding: kowalski catheter in place Passing Gas:: No Diet Tolerance:: regular diet Lochia:: Small Results & Data ([facility]) Vital Signs (Past 12 Hours) Vital Signs Temp Pulse Resp BP Pulse Ox 11/28/21 06:15 20 96 11/28/21 05:15 18 95 11/28/21 04:35 18 96 11/28/21 04:14 97.9 F 56 L 18 136/86 96 11/28/21 03:30 16 94 11/28/21 02:45 16 93 11/28/21 01:30 16 97 11/28/21 00:30 16 96 11/27/21 23:25 18 95 11/27/21 23:07 98.4 F 71 16 120/73 98 11/27/21 22:00 20 96 11/27/21 21:00 18 97
[2021-11-28] MEDS: PRENATAL VITAMIN 1 TAB PO SCH (09:20)
[2021-11-28] MEDS: DOCUSATE SODIUM 100 MG CAP PO SCH ×2 (09:20→20:48)
[2021-11-28] MEDS: SIMETHICONE 80 MG CHEW PO SCH ×4 (09:21→20:49)
[2021-11-28] MEDS: FERROUS SULFATE 325 MG TAB PO SCH (09:21)
[2021-11-28] MEDS: SERTRALINE HCL 100 MG TABLET PO SCH (09:45)
[2021-11-28] MEDS: IBUPROFEN 600 MG TAB PO PRN ×2 (13:42→20:49)
[2021-11-28] MEDS ORDERED: bisacodyL 5 MG TABEC PO SCH (20:00)
[2021-11-29] MEDS: IBUPROFEN 600 MG TAB PO PRN ×2 (04:35→13:55)
[2021-11-29 07:07] LABS: Hematocrit (blood only) 29.1 % (37-47); Hemoglobin 9.6 g/dL (12.0-16.0)
--- NOTE | 2021-11-29 07:14 | Obstetrical Progress Note ---
Date of Service November 29, 2021 Assessment & Plan (1) Encounter for anatomic survey: POD #1, cont current care Subjective Ambulation: ambulating normally Voiding: no voiding problems Passing Gas:: Yes Diet Tolerance:: regular diet Lochia:: Small Results & Data ([facility]) Vital Signs (Past 12 Hours) Vital Signs Temp Pulse Resp BP Pulse Ox 11/28/21 23:53 98.1 F 72 16 123/84 99 11/28/21 19:45 98.1 F 83 16 119/80 98
[2021-11-29] MEDS: DOCUSATE SODIUM 100 MG CAP PO SCH ×2 (08:55→20:03)
[2021-11-29] MEDS: SERTRALINE HCL 100 MG TABLET PO SCH (08:56)
[2021-11-29] MEDS: FERROUS SULFATE 325 MG TAB PO SCH (08:56)
[2021-11-29] MEDS: PRENATAL VITAMIN 1 TAB PO SCH (08:56)
[2021-11-29] MEDS: SIMETHICONE 80 MG CHEW PO SCH ×4 (08:56→20:03)
[2021-11-29] MEDS ORDERED: bisacodyL 10 MG SUPP PR PRN (13:24)
[2021-11-29] MEDS: oxyCODONE/ACETAMINOPHEN 5mg/325mg TAB PO PRN (13:56)
[2021-11-30] MEDS: oxyCODONE/ACETAMINOPHEN 5mg/325mg TAB PO PRN (04:11)
--- NOTE | 2021-11-30 08:34 | Obstetrical Progress Note ---
Date of Service November 30, 2021 Assessment & Plan (1) Encounter for care and examination after delivery: satisfactory /poast-op course D/C to home scripts sent to pharmacy f/u 6 weeks Subjective Ambulation: ambulating normally Voiding: no voiding problems Passing Gas:: Yes Diet Tolerance:: regular diet Lochia:: Small Feeding Type:: breast feeding doing well- pain meds working well Review of Systems All systems reviewed & are unremarkable except as noted in HPI & below Physical Exam Constitutional WD/WN, vitals as above Gastrointestinal (Abdomen) Inspection/Auscultation: + abdominal surgical incision (dry and intact- no erythema) Psychiatric A+Ox3, euthymic affect Genitourinary OB Exam Abdomen: + fundal height Fundus: + firm and + relation to umbilicus (2 below) Results & Data ([facility]) Vital Signs (Past 12 Hours) Vital Signs Temp Pulse Resp BP Pulse Ox 11/29/21 23:05 98.2 F 71 16 128/81 97
[2021-11-30] MEDS: DOCUSATE SODIUM 100 MG CAP PO SCH (08:46)
[2021-11-30] MEDS: SIMETHICONE 80 MG CHEW PO SCH (08:46)
[2021-11-30] MEDS: SERTRALINE HCL 100 MG TABLET PO SCH (08:46)
[2021-11-30] MEDS: FERROUS SULFATE 325 MG TAB PO SCH (08:46)
[2021-11-30] MEDS: PRENATAL VITAMIN 1 TAB PO SCH (08:46)
--- NOTE | 2021-12-02 14:36 | Discharge Summary ---
Date of Service December 02, 2021 Admission HPI Per Admitting Provider 26yo @ 36 09/02, presented to L&D with large gush of clear fluid this morning at 6:30a. No vaginal bleeding. + movement. Not feeling ctx. uncomplicated. Discharge Data Consultations 11/26/21 08:49 Consult Anesthesiology Stat Procedures Performed Operation Date: 11/27/21 12:30 Actual Procedures p Section in LD: Live Male Infant at 1255(Bilateral) - Amilcar Lopez MD, [facility] Course (1) Encounter for care and examination after delivery: satisfactory /poast-op course D/C to home scripts sent to pharmacy f/u 6 weeks Coding Level of Care Code None Diagnoses Encounter for care and examination after delivery Z39.2
== END 2021-11-30 11:40 | disposition home or self-care (01) | DRG 788 ==
LOC: OPB 07:35 → 4S1 07:40 → 4E2 11-27 16:13